=== PATIENT | female | born 1985 | race Caucasian/White ===

== ENCOUNTER → 2017-12-21 | Day surgery (SDC) | payer OTHER ==
[~2017-12-21] VITALS: Ht 167.6 cm; Wt 79.2 kg
[~2017-12-21] MED LIST: *MEPERIDINE 25 MG INJ VIAL PERIprocedural Use ONLY ONE; *diphenhydrAMINE HCL 50 MG/ML VIAL PERIprocedural Use ONLY ONE; ACETAMINOPHEN 1000 MG/100 ML 100 ML IV ONE; CHLORHEXIDINE GLUCONATE 2 % 1 PACK (2 CLOTHS) TOPICAL PRN; DEXAMETHASONE SOD PHOS 4 MG/ML VIAL IV ONE; DO NOT ADM ANY ANTICOAGULANT DRUGS PRN; FAMOTIDINE 20 MG/2 ML VIAL ONE; INSULIN HUMAN REGULAR 1,000 UNITS/10 ML VIAL SQ PRN; KETOROLAC TROMETHAMINE 30 MG/ML (IVP) VIAL IV PUSH ONE; KETOROLAC TROMETHAMINE 30 MG/ML (IVP) VIAL IV PUSH PRN; LACTATED RINGER'S 1000 ML INJ 1,000 ML IV ONE; LACTATED RINGER'S 1000 ML IV PRN; LIDOCAINE 1%/EPINEPHrine 1:100,000 SOLN 30 ML VIAL ONE; LIDOCAINE HCL 1% PF 5 ML SYRINGE OTHER ONE; METOPROLOL TARTRATE 25 MG TAB PO PRN; MIDAZOLAM HCL 2 MG/2 ML VIAL ONE; ONDANSETRON HCL 4 MG/2 ML VIAL IV ONE; POVIDONE IODINE 5% (ANTISEPSIS KIT) 4 APPLICATIONS EACH NARE PRN; PROPOFOL 200 MG/20 ML AMP IV ONE; SODIUM CHLORID 0.9% 500 ML IV PRN; ceFAZolin INJ 1,000 MG VIAL IV ONE; ePHEDrine/NS 25 MG/5 ML SYRINGE IV ONE; oxyCODONE/ACETAMINOPHEN 5 MG/325 MG TAB PO PRN
--- NOTE | 2017-12-21 15:11 | MP ---
cc: Jeni Hand MD, Luis MD Pollard, Cory DATE OF OPERATION: 12/21/2017 PREOPERATIVE DIAGNOSIS: Cervical adenocarcinoma in situ. POST OPERATIVE DIAGNOSIS: Cervical adenocarcinoma in situ. PROCEDURE PERFORMED: Examination under anesthesia, cervix biopsies, fractional dilation and curettage, cervix conizations. 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 ANESTHESIA: Laryngeal mask. ESTIMATED BLOOD LOSS: Less than 20 mL. INDICATION FOR PROCEDURE: A 32-year-old female, abnormal Pap smear and/or appearance of the cervix, led to biopsy. Biopsy was interpreted as adenocarcinoma in situ. She was seen in our office and counseled, seen again in the preop holding area accompanied by a family member. I again reviewed the findings, recommendations and plan. Preop discussion ensued, questions were answered, she expressed good understanding and agreed to move forward with a diagnostic surgical evaluation. FINDINGS: On exam under anesthesia, there was no appreciably enlarged inguinal lymph nodes. External genitalia without masses or lesions. The cervix is circumferentially smooth around the perimeter. The uterus is approximately 8 cm. The uterus and cervix are mobile. There is no obvious parametrial mass or nodularity on pelvic exam nor on rectovaginal exam. Anorectal mucosa is smooth. No obvious abnormality there. The uterine cavity sounds to 8 cm. On the ectocervix, circumferentially around the cervical os in the transformation zone, there are some slightly raised exophytic polypoid changes to the tissue that grossly have the appearance suspicious for neoplasm. Tissue obtained from endocervix was a small to moderate amount. Tissue obtained from the endometrium was a small amount of tissue with the resultant curetting circumferentially around the uterus providing gritty feedback. Frozen section analysis of deep biopsies taken right through the most abnormal appearing area of the transformation zone of the cervix with the biopsies taken down a number millimeters into the cervical stroma. One was sent for frozen section analysis and one was for permanent histopathologic analysis. I had the opportunity to speak with Dr. Fran Malhotra who reviewed the specimen and stated that there was extensive chronic inflammation but he did not see any findings on the biopsy to suggest invasive disease and was not certain that he could call on frozen section the presence or absence of dysplasia. DESCRIPTION OF PROCEDURE: She was taken to the operating room, placed in the dorsal lithotomy position after laryngeal mask anesthesia was administered. Timeout was undertaken. She was identified by sight recognition and hospital ID brafang and the proposed procedure was reviewed and confirmed. An exam under anesthesia was performed with findings as described above. She was prepped and draped in sterile fashion. In and out catheterization of the bladder was performed. The cervix was grasped with tenaculum. The findings were as described with abnormal appearing areas on the cervix, Two generous biopsies were obtained, one was sent for frozen section analysis. Lidocaine epinephrine was injected circumferentially which helped produce bleeding prior to biopsy. Next, endocervical curetting was performed circumferentially, tissue was obtained, multiple passes circumferentially, combined and called endocervical curetting. The cervix was then dilated to allow a small to medium sized curette with circumferential multiple passes, the tissue was combined and called endometrial biopsy. At this point, the frozen section came back showing no evidence of invasive disease, uncertain whether there was dysplasia present but chronic inflammation. Accordingly, it was felt that now a cone biopsy was necessary to determine the presence or absence of adenocarcinoma in situ and the presence or absence of invasive disease. Next, 0 Vicryl sutures were placed at the 3 and 9 o'clock position of the cervix in a [id number] fashion and tied securely. The axis of the cervix was identified using a uterine sound and a scalpel was used circumferentially around the transformation zone, angling in to include the endocervical canal. The conization was finished with sharp scissor dissection and the specimen was removed. It is noted that the endocervical curetting and endometrial curettings were performed before the conization in steps taken described above and therefore any findings on endocervix do not necessarily represent persistent abnormality above the apex of the cone. Cone bed was cauterized circumferentially and then topical Monsel's solution was applied. All sites were hemostatic. There were no remaining foreign objects in the vagina. Preliminary and final counts were correct. She was returned dorsal supine position and was pending reversal of anesthesia when I left the operating room to precede her to the postanesthesia care unit. MD URVASHI Noel/DESHAWN , 02:22 PM , 03:10 PM
[2017-12-21 15:55] VITALS: BP 121/70; PULSE 79; RESP 16; TEMP 97.8; O2SAT 98
== END | disposition home or self-care (01) ==
LOC: HSDC 10:46
PROVIDERS: ATTEND Obstetrics & Gynecology Gynecologic Oncology
DX: D06.9 Carcinoma in situ of cervix, unspecified (principal)
CPT/HCPCS: 00940; 57520; 86850; 86900; 86901; 88305; 88307; 88331; J0131; J0690; J1100; J1200; J1885; J2175; J2250; J2405; J3010; J7120